=== PATIENT | female | born 1955 | race Caucasian/White ===

== ENCOUNTER → 2020-01-21 | Day surgery (SDC) | payer OTHER ==
[2020-01-17 14:52] LABS: ANION GAP 15.6 mmol/L (8-16); CALCIUM 9.4 mg/dL (8.4-10.2); CREATININE, SERUM 1.28 mg/dL (0.57-1.11); POTASSIUM 3.6 mmol/L (3.5-5.1)
--- NOTE | 2020-01-17 15:13 | Diagnostic Imaging Report ---
EXAMINATION: CHEST 2 VIEWS INDICATION: Pre-operative COMPARISON: None FINDINGS: LINES/TUBES:None LUNGS:The lungs are well-inflated. No focal consolidation or pulmonary edema. PLEURA:No pleural effusion or pneumothorax. MEDIASTINUM:The cardiomediastinal silhouette appears normal in size and shape. BONES/SOFT TISSUES:Age indeterminate T11 compression fracture. ABDOMEN:No free air under the diaphragm. IMPRESSION: No focal pneumonia or pulmonary edema. Age-indeterminate T11 compression fracture. Signed by: Chase Hanson MD on 01/17/2020 3:10 PM
[~2020-01-21] MED LIST: ATROPINE SULFATE 1 MG/ML VIAL ONE; AZO CRANBERRY1 EACH PO; BIOTIN2500 MCG PO; BUPIVACAINE HCL 0.5% INJ 30 ML VIAL INJ ONE; CEFAZOLIN SOD 1 GM/NS 50ML 50 ML IV ONE; CLONAZEPAM1 MG PO; DEXAMETHASONE SOD PHOS INJ 4 MG/ML VIAL ONE; ESTRADIOL1 MG PO; FENTANYL CITRATE/PF 100MCG/2 ML INJ ONE; GABAPENTIN300 MG PO; HYDROMORPHONE 1MG/1ML INJ ONE; KETOROLAC TROMETHAMINE 30 MG/ML VIAL ONE; LEVOTHYROXINE100 MCG PO; LIDOCAINE HCL 2% LOCAL INJ 5 ML SDV VIAL INJ ONE; LISINOPRIL-HCT1 EACH PO; MELOXICAM7.5 MG PO; MIDAZOLAM HCL 2 MG/2 ML VIAL ONE; MORPHINE SULFATE INJ 4 MG/ML INJ 1ML ONE; NEOSTIGMINE 1 MG/ML 10ML VIAL ONE; NORCO 10-325 T1 EACH PO; ONDANSETRON HCL INJ 2MG/ML 2ML 2 MG/ML VIAL ONE; PANTOPRAZOLE SO40 MG PO; POTASSIUM PO; PREDNISONE20 MG PO; PROPOFOL IV EMULSION 10 MG/ML 20 ML VIAL ONE; ROCURONIUM BROMIDE 10 MG/ML 5ML VIAL IV ONE; SEVOFLURANE INHAL SOLN 250 ML PEN BTL ONE; VITAMIN B122500 MCG PO; VITAMIN C500 MG PO; VITAMIN D3 PO
--- NOTE | 2020-01-21 10:16 | Operative Report ---
DATE OF PROCEDURE: 01/21/2020 SURGEON: Gera Bonilla MD PARLOR CHAPERONE: Bubba Kimball PA-C. PREOPERATIVE DIAGNOSIS: Atrophic nonunion right ulna. POSTOPERATIVE DIAGNOSIS: Atrophic nonunion right ulna. PROCEDURE: 1. Debridement of nonunion, right ulna. 2. Open reduction and internal fixation, right ulna. INDICATIONS: The patient is a 64-year-old lady who elected to try to treat a right ulnar fracture nonsurgically. This was under the care of another doctor. She went on to develop an atrophic nonunion. She presented to my clinic for 2nd opinion. I have recommended open reduction with internal fixation. The risks and benefits were explained. All of her questions were answered. The possibility of future hardware removal was explained. She states she understands and wishes to proceed. PROCEDURE IN DETAIL: The patient was brought to the operating room and placed under general anesthetic. She was positioned in the left lateral decubitus position. Her right upper extremity was prepped and draped in a sterile manner. She received prophylactic antibiotics in the holding area. A preoperative time-out was performed. The extremity was exsanguinated and a proximal tourniquet was inflated to 250 mmHg. An incision was made in line with the shaft of the ulna. Her skin was very thin. The fracture site was carefully exposed. Electrocauterizer was used to elevate the periosteum. This was a completely atrophic nonunion. Both ends of the fracture were carefully exposed and debrided back to a healthy bone. The bone seemed somewhat avascular even after debridement. A [employer] pre-contoured right ulnar plate was placed over the ulnar shaft. This was locked proximally and distally with a combination of compression and locking screws. Intraoperative x-rays confirmed satisfactory reduction and positioning of the hardware. The wound was irrigated. A couple of mL of the DBX bone putty were placed around the fracture site. The deep fascia was carefully closed with interrupted Vicryl stitches. The skin was closed with running nylon stitches. A sterile bandage and a posterior splint were applied. There was no blood loss and all needle and sponge counts were correct. Gera Bonilla MD DR/ZAKI /[id number]
[2020-01-21 10:50] VITALS: BP 136/68
== END | disposition home or self-care (01) ==
LOC: OR 06:22
PROVIDERS: ATTEND Specialist
DX: S52.201A Unspecified fracture of shaft of right ulna, initial encounter for closed fracture (principal); M06.9 Rheumatoid arthritis, unspecified; J45.909 Unspecified asthma, uncomplicated; B15.9 Hepatitis A without hepatic coma; I12.9 Hypertensive chronic kidney disease with stage 1 through stage 4 chronic kidney disease, or unspecified chronic kidney disease; N18.9 Chronic kidney disease, unspecified; X58.XXXA Exposure to other specified factors, initial encounter; Z01.810 Encounter for preprocedural cardiovascular examination; Z01.812 Encounter for preprocedural laboratory examination; Z01.818 Encounter for other preprocedural examination; Z11.59 Encounter for screening for other viral diseases; Z68.35 Body mass index [BMI] 35.0-35.9, adult; Z87.891 Personal history of nicotine dependence
CPT/HCPCS: 25400; 36415; 71046; 76000; 80048; 93005; C1713 ×8; J0461; J0690; J1100; J1170; J1885; J2001; J2250; J2270; J2405; J2704; J2710; J3010; U0002

== ENCOUNTER 2020-06-22 07:26 | Inpatient (IN) | payer MEDICARE ==
[2020-06-18 12:33] LABS: ANION GAP 15.5 mmol/L (8-16); CALCIUM 8.5 mg/dL (8.4-10.2); CREATININE, SERUM 1.03 mg/dL (0.57-1.11); POTASSIUM 3.5 mmol/L (3.5-5.1)
[~2020-06-22] VITALS: Ht 167.6 cm; Wt 99.8 kg
[~2020-06-22 07:26] MED LIST changes: +ACETAMINOPHEN650 M3 PO; -ATROPINE SULFATE 1 MG/ML VIAL ONE; -BUPIVACAINE HCL 0.5% INJ 30 ML VIAL INJ ONE; -CEFAZOLIN SOD 1 GM/NS 50ML 50 ML IV ONE; -DEXAMETHASONE SOD PHOS INJ 4 MG/ML VIAL ONE; -FENTANYL CITRATE/PF 100MCG/2 ML INJ ONE; -HYDROMORPHONE 1MG/1ML INJ ONE; +IBUPROFEN800 MG PO; -KETOROLAC TROMETHAMINE 30 MG/ML VIAL ONE; -LIDOCAINE HCL 2% LOCAL INJ 5 ML SDV VIAL INJ ONE; -MIDAZOLAM HCL 2 MG/2 ML VIAL ONE; -MORPHINE SULFATE INJ 4 MG/ML INJ 1ML ONE; -NEOSTIGMINE 1 MG/ML 10ML VIAL ONE; -ONDANSETRON HCL INJ 2MG/ML 2ML 2 MG/ML VIAL ONE; -PROPOFOL IV EMULSION 10 MG/ML 20 ML VIAL ONE; -ROCURONIUM BROMIDE 10 MG/ML 5ML VIAL IV ONE; -SEVOFLURANE INHAL SOLN 250 ML PEN BTL ONE
[2020-06-22] MEDS ORDERED: VANCOMYCIN 1GM/NS 250 ML 250 ML ONE (07:50)
[2020-06-22] MEDS ORDERED: BUPIVACAINE HCL 0.5% INJ 30 ML VIAL INJ ONE (09:07)
[2020-06-22] MEDS ORDERED: DIPHENHYDRAMINE HCL INJ 50 MG/ML VIAL IV PRN (09:30)
[2020-06-22] MEDS ORDERED: ONDANSETRON HCL INJ 2MG/ML 2ML 2 MG/ML VIAL IV PRN (09:30)
[2020-06-22] MEDS ORDERED: DOCUSATE SODIUM 100 MG CAP PO PRN (09:30)
[2020-06-22] MEDS ORDERED: HYDROCODONE/APAP 5MG-325MG TAB PO PRN (09:30)
[2020-06-22] MEDS ORDERED: ACETAMINOPHEN 650 MG SUPP PR PRN (09:30)
[2020-06-22] MEDS ORDERED: ZOLPIDEM TARTRATE 5 MG TAB PO PRN (09:30)
[2020-06-22] MEDS ORDERED: FENTANYL CITRATE/PF 100MCG/2 ML INJ ONE ×2 (09:50→12:07)
[2020-06-22] MEDS ORDERED: HYDROMORPHONE 1MG/1ML INJ ONE (10:19)
[2020-06-22] MEDS ORDERED: HYDROCODONE/APAP 7.5MG-325MG 1 EA TAB ONE (11:13)
[2020-06-22] MEDS ORDERED: MIDAZOLAM HCL 2 MG/2 ML VIAL ONE (12:07)
[2020-06-22] MEDS: SODIUM CHLORIDE 0.9% 1000ML 1,000 ML IV SCH ×2 (14:20→19:30)
[2020-06-22] MEDS: HYDROCODONE/APAP 7.5MG-325MG 1 EA TAB PO PRN ×2 (14:57→19:45)
[2020-06-22 15:48] VITALS: BP 139/61
[2020-06-22] MEDS: CELECOXIB 200 MG CAP PO SCH (17:09)
[2020-06-22] MEDS ORDERED: PANTOPRAZOLE SOD 40 MG TABEC PO ONE (17:30)
[2020-06-22] MEDS ORDERED: LIDOCAINE HCL 2% LOCAL INJ 5 ML SDV VIAL INJ ONE (18:02)
[2020-06-22] MEDS ORDERED: PROPOFOL IV EMULSION 10 MG/ML 20 ML VIAL ONE (18:02)
[2020-06-22] MEDS ORDERED: ONDANSETRON HCL INJ 2MG/ML 2ML 2 MG/ML VIAL ONE (18:02)
[2020-06-22] MEDS ORDERED: DEXAMETHASONE SOD PHOS INJ 4 MG/ML VIAL ONE (18:02)
[2020-06-22] MEDS ORDERED: SEVOFLURANE INHAL SOLN 250 ML PEN BTL ONE (18:02)
[2020-06-22 18:17] VITALS: BP 139/61
[2020-06-22] MEDS ORDERED: CALCIUM CARBONATE 500 MG CHEWABLE TABS PO PRN (19:30)
[2020-06-22] MEDS: VANCOMYCIN 1GM/NS 250 ML 250 ML IV SCH (19:53)
[2020-06-22 20:12] VITALS: BP 130/57
[2020-06-22 20:15] VITALS: BP 130/57
[2020-06-23] VITALS (9 sets, daily range): BP systolic 121–146; BP diastolic 53–92
[2020-06-23] MEDS: HYDROCODONE/APAP 7.5MG-325MG 1 EA TAB PO PRN ×7 (00:19→21:35)
[2020-06-23] MEDS: GABAPENTIN 300 MG CAP PO SCH ×4 (01:05→20:39)
[2020-06-23] MEDS: SODIUM CHLORIDE 0.9% 1000ML 1,000 ML IV SCH ×3 (01:28→20:39)
[2020-06-23] MEDS: LEVOTHYROXINE SODIUM 100 MCG TAB PO SCH (04:55)
[2020-06-23 06:06] LABS: HEMATOCRIT 17.9 % (34.2-44.1); HEMOGLOBIN 4.8 g/dL (12.0-16.0)
[2020-06-23] MEDS ORDERED: SODIUM CHLORIDE 0.9% 250ML 250 ML IV ONE ×2 (06:15→23:00)
[2020-06-23] MEDS: LISINOPRIL 20 MG TAB PO SCH (08:14)
[2020-06-23] MEDS: VANCOMYCIN 1GM/NS 250 ML 250 ML IV SCH ×2 (08:14→21:35)
[2020-06-23] MEDS: CELECOXIB 200 MG CAP PO SCH ×2 (08:14→15:04)
[2020-06-23] MEDS: PANTOPRAZOLE SOD 40 MG TABEC PO SCH (08:15)
[2020-06-23 09:10] LABS: HEMATOCRIT 18.8 % (34.2-44.1)
[2020-06-23] MEDS ORDERED: ACETAMINOPHEN 1000 MG/100 ML IV PRN (09:30)
[2020-06-23] MEDS ORDERED: SODIUM CHLORIDE 0.9% 250ML 250 ML ONE ×2 (09:56→14:25)
[2020-06-23] MEDS ORDERED: ONDANSETRON HCL 4 MG ORAL DISINTEGRATING TAB PO PRN (11:00)
[2020-06-23] MEDS ORDERED: CEFEPIME HCL 1GM 1 GM in SODIUM CHLORIDE 0.9% 50ML 50 ML IV SCH (14:00)
[2020-06-23] MEDS ORDERED: CEFEPIME HCL 1 GM VIAL IV SCH (14:00)
[2020-06-23] MEDS ORDERED: VANCOMYCIN 1GM/NS 250 ML 250 ML IV SCH (20:00)
[2020-06-23] MEDS: CEFEPIME HCL 1GM 1 GM in SODIUM CHLORIDE 0.9% 50ML 50 ML IV SCH (20:39)
[2020-06-23 22:53] LABS: HEMATOCRIT 22.8 % (34.2-44.1); HEMOGLOBIN 6.6 g/dL (12.0-16.0)
[2020-06-24] VITALS (13 sets, daily range): BP systolic 136–172; BP diastolic 57–99
[2020-06-24] MEDS: HYDROCODONE/APAP 7.5MG-325MG 1 EA TAB PO PRN (04:15)
[2020-06-24] MEDS: CEFEPIME HCL 1GM 1 GM in SODIUM CHLORIDE 0.9% 50ML 50 ML IV SCH ×2 (04:17→12:46)
[2020-06-24] MEDS: LEVOTHYROXINE SODIUM 100 MCG TAB PO SCH (05:41)
[2020-06-24 06:34] LABS: HEMATOCRIT 26.5 % (34.2-44.1); HEMOGLOBIN 7.8 g/dL (12.0-16.0)
[2020-06-24] MEDS: HYDROCODONE/APAP 10MG-325MG TAB PO PRN ×3 (08:20→17:14)
[2020-06-24] MEDS: GABAPENTIN 300 MG CAP PO SCH ×2 (08:47→16:19)
[2020-06-24] MEDS: PANTOPRAZOLE SOD 40 MG TABEC PO SCH (08:47)
[2020-06-24] MEDS: CELECOXIB 200 MG CAP PO SCH ×2 (08:47→16:19)
[2020-06-24] MEDS: LISINOPRIL 20 MG TAB PO SCH (08:47)
[2020-06-24] MEDS: VANCOMYCIN 1GM/NS 250 ML 250 ML IV SCH (09:50)
[2020-06-24] MEDS ORDERED: DAPTOMYCIN 500mg 10ML 500 MG in SODIUM CHLORIDE 0.9% 100 ML IV ONE (14:00)
[2020-06-24] MEDS ORDERED: LOPERAMIDE HCL 2 MG CAP PO ONE (17:30)
== END 2020-06-24 18:20 | disposition home or self-care (01) | DRG 496 ==
LOC: OR 07:26 → PACU V 09:28 → MED/SURG 13:20 → OBSVTOIN 06-24 10:42
PROVIDERS: ADMIT Specialist; ATTEND Specialist
PROC: 02HV33Z Insertion of Infusion Device into Superior Vena Cava, Percutaneous Approach (ICD-10-PCS; 2020-06-22)
PROC: 0PW Upper Bones, Revision (ICD-10-PCS; principal; 2020-06-24)
DX: T84.50XA Infection and inflammatory reaction due to unspecified internal joint prosthesis, initial encounter (principal); M96.0 Pseudarthrosis after fusion or arthrodesis; T84.89XD Other specified complication of internal orthopedic prosthetic devices, implants and grafts, subsequent encounter; M96.631 Fracture of radius or ulna following insertion of orthopedic implant, joint prosthesis, or bone plate, right arm; E03.9 Hypothyroidism, unspecified; K21.9 Gastro-esophageal reflux disease without esophagitis
CPT/HCPCS: 36415; 36569; 71045; 76000; 80048; 80202; 85014; 85018; 86850; 86900; 86920; 87071; 87075; 87186; 87205; 93005; 97139; C1713; G0378; J0692; J1100; J1170; J1200; J2001; J2250; J2405; J3010; J3370; J7030; J7050; P9016; U0002

== ENCOUNTER → 2020-08-27 | Day surgery (SDC) | payer MEDICARE ==
[~2020-08-27] MED LIST changes: +BUPIVACAINE 0.5%/EPI 30 ML SDV INJ ONE; +CALCIUM500 MG PO; +CEFAZOLIN SOD 1 GM/NS 50ML 50 ML IV ONE; +DEXILANT60 MG PO; +FENTANYL CITRATE/PF 100MCG/2 ML INJ ONE; +HYDROMORPHONE 1MG/1ML INJ ONE; +LIDOCAINE HCL 2% LOCAL INJ 5 ML SDV VIAL INJ ONE; +NEOSTIGMINE 1 MG/ML 10ML VIAL ONE; +ONDANSETRON HCL INJ 2MG/ML 2ML 2 MG/ML VIAL ONE; +POVIDONE IODINE 0.05% 0.05 % ML PO ONE; +PROPOFOL IV EMULSION 10 MG/ML 20 ML VIAL ONE; +SEVOFLURANE INHAL SOLN 250 ML PEN BTL ONE
[2020-08-27 14:28] VITALS: BP 118/54
== END | disposition home or self-care (01) ==
LOC: OR 10:12
PROVIDERS: ATTEND Specialist
DX: T84.614A Infection and inflammatory reaction due to internal fixation device of right ulna, initial encounter (principal); S52.201K Unspecified fracture of shaft of right ulna, subsequent encounter for closed fracture with nonunion; I10 Essential (primary) hypertension; E03.9 Hypothyroidism, unspecified; B15.9 Hepatitis A without hepatic coma; K21.9 Gastro-esophageal reflux disease without esophagitis; F41.9 Anxiety disorder, unspecified; Y83.8 Other surgical procedures as the cause of abnormal reaction of the patient, or of later complication, without mention of misadventure at the time of the procedure; Z01.812 Encounter for preprocedural laboratory examination; Z20.822 Contact with and (suspected) exposure to COVID-19; Z68.32 Body mass index [BMI] 32.0-32.9, adult; Z87.891 Personal history of nicotine dependence
CPT/HCPCS: 20680; 87071; 87075; 87102; 87116; 87205; 87206 ×2; J0690; J1170; J2001; J2405; J2704; J3010; U0002; J2710

== ENCOUNTER → 2020-11-19 | Outpatient (CLI) | payer MEDICARE ==
[~2020-11-19] MED LIST changes: -BUPIVACAINE 0.5%/EPI 30 ML SDV INJ ONE; -CEFAZOLIN SOD 1 GM/NS 50ML 50 ML IV ONE; -FENTANYL CITRATE/PF 100MCG/2 ML INJ ONE; +GADOBENATE DIMEGLUMINE 1 ML IV ONE; -HYDROMORPHONE 1MG/1ML INJ ONE; -LIDOCAINE HCL 2% LOCAL INJ 5 ML SDV VIAL INJ ONE; -NEOSTIGMINE 1 MG/ML 10ML VIAL ONE; -ONDANSETRON HCL INJ 2MG/ML 2ML 2 MG/ML VIAL ONE; -POVIDONE IODINE 0.05% 0.05 % ML PO ONE; -PROPOFOL IV EMULSION 10 MG/ML 20 ML VIAL ONE; -SEVOFLURANE INHAL SOLN 250 ML PEN BTL ONE
== END ==
LOC: MRI 14:45
PROVIDERS: ATTEND Orthopaedic Surgery
DX: M86.431 Chronic osteomyelitis with draining sinus, right radius and ulna (principal)
CPT/HCPCS: 73223; A9577

== ENCOUNTER → 2021-03-29 | Outpatient (CLI) | payer MEDICARE ==
[~2021-03-29] MED LIST changes: -GADOBENATE DIMEGLUMINE 1 ML IV ONE
== END ==
LOC: LAB 13:02
PROVIDERS: ATTEND Orthopaedic Surgery
DX: M86.631 Other chronic osteomyelitis, right radius and ulna (principal); S52.271K Monteggia's fracture of right ulna, subsequent encounter for closed fracture with nonunion; Z20.822 Contact with and (suspected) exposure to COVID-19
CPT/HCPCS: U0002

== ENCOUNTER → 2021-06-21 | Outpatient (CLI) | payer MEDICARE ==
[2021-06-21 12:29] LABS: INR 0.91; PROTHROMBIN TIME 13.1 seconds (11.9-14.5)
[2021-06-21 12:33] LABS: CREATININE, SERUM 1.06 mg/dL (0.57-1.11)
== END ==
LOC: DX 10:11
PROVIDERS: ATTEND Internal Medicine Infectious Disease
DX: M86.431 Chronic osteomyelitis with draining sinus, right radius and ulna (principal); B95.62 Methicillin resistant Staphylococcus aureus infection as the cause of diseases classified elsewhere
CPT/HCPCS: 36415; 36569; 71045; 82565; 84520; 85610; 85730